=== PATIENT | male | born 1980 | race Caucasian/White ===

== ENCOUNTER 2018-02-19 08:28 | Emergency (ER) | payer OTHER, SELFPAY ==
[2018-02-19 08:30] VITALS: BP 155/91; PULSE 80; RESP 16; TEMP 36.4; O2SAT 99; BMI 30.8
--- NOTE | 2018-02-19 08:54 | ED.DCSUM_ITS ---
- ER Visit Summary Date of Service: 02/19/18 Chief Complaint: Aching right upper quadrant/right costal margin deep dull discomfort History of Present Illness: The patient is a 38 M who presents with right upper quadrant deep dull discomfort for 4 months. He states pain has gotten worse the past 2 days. There is no alleviating, precipitating or exacerbating factors. And specifically there is no difference with movement, food, change in position or breathing. He does report wheezing for approximately 3 years. He does admit to smoking 1 pack per day for 20 years and also chews. He denies any change in the color of his eyes, skin or urine. He denies any change in the consistency, color or caliber of his stool. He does report increased urination and apparently there is a family history diabetes. Denies polydipsia , polyphagia. he denies dysuria, urgency or hematuria. There is no history of trauma. No recent tattoos and no history of hepatitis. He denies fever, chills night sweats. He denies weight gain or weight loss. He denies headache, any ocular, visual or auditory symptoms. He denies paresthesia, anesthesia motor weakness. He does report a cough which is chronic and nonproductive. He attributed this to the fact that he smokes 1 pack per day since age of 18. Please read written note for complete detail. Physical Examination: Vital signs remarkable blood pressure 155 or 91. Patient is well-developed well-nourished in no obvious distress. Head is atraumatic normocephalic. Pupils are equal round reactive. Extraocular muscles are intact. TMs are pearly white with landmarks noted. Nares patent with no drainage. Posterior pharynx without erythema or exudate. Uvula is midline. There is no dysphonia or dysphasia. Trachea is midline. There is no stridor with auscultation of the neck. Heart is regular without murmur, gallop or rub. S1 and S2 are normal. Lungs are clear to auscultation with good movement of air bilaterally. Abdomen is soft and nontender. There is no guarding or peritoneal findings. There is no palpable pulsatile mass. There is no abdominal bruit. Rocha sign is negative. Negative Rovsing sign. There is no evidence of inguinal or umbilical hernia. There is no asymmetry, swelling, discoloration, leg vein distention, palpable cords or tenderness along the distribution of the deep venous system. Neuro exam is nonfocal. Test Results: Is normal. Electrolyte panel is normal. UA is normal. Hepatic is remarkable for an elevated ALT and AST. Upon further questioning patient admits to drinking 6-8 beers a day and 12 pack on weekends. He also admits to drinking shots of whiskey. Emergency Department Course and Treatment: With history of frequency and multiple for members with diabetes will assess electronic panel and UA to evaluate for diabetes. With him having right upper quadrant pain a hepatic profile and CBC were obtained to evaluate this complaint. Since she has no respiratory symptoms and the wheezing has been a chronic issue for 3 years will prescribe albuterol MDI. Treatment Plan: And has been encouraged to decrease his alcohol consumption. He was specifically told not to decrease rapidly. Recommend decreasing one drink a day for a week and then an additional drink a day for a week to prevent withdrawal. He was told his liver enzymes are elevated and based on the ratio this is most likely related to his alcohol consumption. Disposition: Discharged to home in stable condition. He was instructed to keep his appointment with Dr. Kunal Rainey. Impression: Right upper quadrant abdominal pain secondary to alcoholic liver disease This note was generated with [employer] dictation software. It may contain incorrect words, spelling, and punctuation that were not noted in review of the chart prior to signing ED Disposition - Plan for ED Patient: Disposition: Home or Assisted Living Chief Complaint: Abd Pain Instructions: ED Cirrhosis Liver Referrals: Alyssa Givens DO [STAFF PHYSICIAN] - Mihai Clemons MD [NON-STAFF] - Additional Instructions: Keep your appointment for March [address] Kunal Rainey. Recommend decreasing 1 alcoholic beverage a day per week. Do not discontinue abruptly since this will cause withdrawal which is life-threatening.
[2018-02-19 09:04] LABS: Bacteria 0 SEEN /hpf (None Seen); Mucous, Urine 0 SEEN /hpf (<or=2+)
[2018-02-19 09:08] LABS: Absolute Lymphocyte Count 2.49 X10^3/ul (0.83-4.51); Absolute Neutrophil Count 4.6 X10^3/uL (2.0-7.7); Basophil# 0.04 X10^3/uL; Basophil% 0.5 % (0-1); Eosinophils% 7.2 % (0-5); Hematocrit 46.3 % (40-54); Hemoglobin 15.8 g/dl (13.0-16.5); Lymphocyte # 2.49 X10^3/ul (4.0); Lymphocyte % 29.9 % (19-41); Mean Corp Hgb Conc 34.1 g/gl (32-36); Mean Corpuscular Volume 96.7 fL (80-94); Monocyte# 0.53 X10^3/uL; Monocyte% 6.4 % (0-10); Neutrophil # 4.62 X10^3/uL (2.7-7.7); Neutrophil % 55.5 % (47-70); Platelet Count 179 K/mm3 (150-450); RBC Distribution Width CV 13.5 % (11.6-14.6); RBC Distribution Width SD 47.6 fl (35.1-43.9); Red Blood Count 4.79 M/mm3 (4.6-6.2); White Blood Count 8.3 K/mm3 (4.4-11.0)
[2018-02-19 09:09] LABS: POSITIVE COUNT NO; POSITIVE DIFFERENTIAL NO; POSITIVE MORPHOLOGY NO
[2018-02-19 09:11] LABS: Color, Urine Yellow (Yellow); Glucose, Dipstick Normal (Normal); Ketone-Dipstick Negative (Negative); Leukocyte Esterase-Dipstick Negative /ul (Negative); Nitrite-Dipstick Negative (Negative); Occult Blood-Urine Negative /ul (Negative); Protein-Dipstick Negative (Negative); Urine Bilirubin Dipstick Negative (Negative); Urine Clarity Clear (Clear); Urine Urobilinogen Normal (Normal)
[2018-02-19 09:15] LABS: Red Blood Cells-Urine 0-5 SEEN /hpf (0-5); Squamous Epithelial Cells - UA 0-5 SEEN /hpf (0-5); White Blood Cells 0-5 SEEN /hpf (0-5)
[2018-02-19 09:28] LABS: ALB/GLOB Ratio 1.2 RATIO (0.9-2.4); AST(SGOT) 42 U/L (15-37); Alanine Aminotransfer ALT/SGPT 81 U/L (16-61); Alkaline Phosphatase 78 U/L (45-117); Anion Gap 6 (5-15); BUN 16 mg/dL (7-18); Calcium,Total 8.6 mg/dL (8.5-10.1); Chloride 107 mmol/L (98-107); EST Glomerular Filtration Rate 89 mL/min (>60); Est Glom Filt Rate - Afr Amer 107 mL/min (>60); Globulin 3.3 g/dL (2.2-4.2); Glucose 93 mg/dL (74-106); Potassium 4.3 mmol/L (3.5-5.1); Protein, Total 7.3 g/dL (6.4-8.2); Sodium Level 141 mmol/L (136-145)
[2018-02-19 10:50] VITALS: BP 146/98; PULSE 76; RESP 16; O2SAT 97
== END 2018-02-19 10:50 | disposition home or self-care (01) ==
PROVIDERS: Emergency Provider Emergency Medicine
DX: K70.9 Alcoholic liver disease, unspecified (principal); R05 Cough; F17.200 Nicotine dependence, unspecified, uncomplicated; F17.220 Nicotine dependence, chewing tobacco, uncomplicated
CPT/HCPCS: 80053; 81001; 85025; 99282

== ENCOUNTER 2020-03-01 02:55 | Emergency (ER) | payer OTHER, SELFPAY ==
[2020-03-01 02:56] VITALS: BP 165/108; PULSE 85; RESP 16; TEMP 36.9; O2SAT 97; BMI 30.4
--- NOTE | 2020-03-01 03:18 | ED.VISSUMM ---
- ER Visit Summary Date of Service: 03/01/20 Chief Complaint: Sinus infection with yellowish drainage History of Present Illness: The patient is a 40 M history of hypertension. Patient states he gets frequent sinus infections. He said the latest 1 is been going on 5 to 6 weeks. He had yellowish nasal drainage. He said at times he gets pain with it. At times it causes him dental pain. He denies any fever or chills. No significant cough. No shortness of breath. He does not have a primary care physician has not had any treatment for this as of yet. Physical Examination: Middle-aged male no acute distress vital signs are stable and afebrile. H EENT exam nasal congestion. TMs normal bilaterally. Posterior pharynx normal. Well-hydrated. Neck nontender no lymphadenopathy. Lungs clear to auscultation bilaterally. Heart regular rhythm no murmur. Abdomen soft nontender. Moving all 4 extremities. Neurovascular intact. No edema. Neurologically is awake and alert with no focal motor deficits. Test Results: None Emergency Department Course and Treatment: History and exam are consistent with sinusitis. Will be started on amoxicillin 3 times daily first dose given in the ER. Treated for 10 days. Treatment Plan: Amoxicillin for 10 days. Follow-up if not improving. Tylenol Motrin for pain. Disposition: Discharge Impression: Acute sinusitis This note was generated with [employer] dictation software. It may contain incorrect words, spelling, and punctuation that were not noted in review of the chart prior to signing ED Disposition - Plan for ED Patient: Referrals: Care Physician,No Primary [Primary Care Provider] -
--- NOTE | 2020-03-01 03:20 | ED.DEP ---
ED Disposition - Plan for ED Patient: Disposition: Home or Assisted Living Instructions: ED Sinusitis Antibiotic Treatment Prescriptions: Amoxicillin 500 mg PO TID #30 tab Prescription Printed Referrals: Ronnie Quintana MD [NON-STAFF] - 1 Week if not improving Additional Instructions: Amoxicillin 1 pill 3 times a day for 10 days. Tylenol and/or Motrin for pain. Follow-up if not improving. Stop smoking
[2020-03-01 03:44] VITALS: BP 144/95; PULSE 78; RESP 18; O2SAT 95
[2020-03-01] MEDS: AMOXICILLIN 500 MG CAPSULE PO (03:44)
== END 2020-03-01 03:45 | disposition home or self-care (01) ==
LOC: ED 03:23
PROVIDERS: Emergency Provider Emergency Medicine
DX: J01.90 Acute sinusitis, unspecified (principal); I10 Essential (primary) hypertension; Z72.0 Tobacco use
CPT/HCPCS: 99283

== ENCOUNTER 2022-01-29 15:53 | Emergency (ER) | payer OTHER, SELFPAY ==
[2022-01-29 15:55] VITALS: BP 204/120; PULSE 90; RESP 16; TEMP 36.5; O2SAT 99; BMI 29.7
--- NOTE | 2022-01-29 16:31 | ED.VIS.DENTA ---
HPI History of Present Illness Chief Complaint: Ear Problem Informant: patient Narrative Narrative: Patient presents with left upper jaw dental pain about 3 days. He states is kind of radiating toward the left ear but his hearing is normal. No chest pain or trouble breathing. He has had dental infections that acted like this. He has an appointment with the dentist tomorrow. Nothing really makes his better or worse. PFSH PFSH Medical History no medical history Home Medications naproxen 500 mg PO BID #14 tab 01/29/22 [Rx Last Taken Unknown] penicillin V potassium 500 mg PO 4X/DAY #40 tab 01/29/22 [Rx Last Taken Unknown] Allergy/AdvReac Type Severity Reaction Status Date / Time No Known Allergies Allergy Verified 01/29/22 15:55 Surgical History no surgical history Social History Smoking Status: Current every day smoker tobacco type: cigarettes ROS ROS ED Constitutional Constitutional ED: Denies chills or fever(s) Eyes Eyes: Denies blurry vision or change in vision ENT ENT ED: Reports other Details: See history of present illness ; Denies rhinorrhea Cardiovascular Cardiovascular: Denies chest pain Respiratory/Chest Respiratory/Chest: Denies cough or dyspnea Gastrointestinal Gastrointestinal: Denies nausea or vomiting Integumentary Denies rash Neurologic Neurologic: Denies headache(s) Allergic/Immunologic Allergic/Immunologic ED: Denies mouth swelling or tongue swelling EXAM Physical Exam Const Vital Signs: 01/29/22 15:55 01/29/22 16:41 Temperature 97.7 F L Temperature Source Temporal Pulse Rate 90 Respiratory Rate 16 Blood Pressure 204/120 H 176/117 H Blood Pressure Mean 148 136 Pulse Ox 99 Oxygen Delivery Method Room Air Positive well nourished and well developed Constitutional Narrative: Patient sitting quietly in the chair. No acute distress. General Appearance ED: well developed and NAD HEENT HEENT Narrative: No facial swelling or erythema. Tympanic membranes are actually clear on both sides. No tenderness at the tragus. No TMJ tenderness. His posterior upper molars on the left do have erythema of the gums around them. There is some mild tenderness. No notable fracture. No lower jaw symptoms. Voice is normal. No sign of Ludewig's. Negative for trauma Eyes PERRL and EOMs intact bilaterally Neck supple Chest Wall inspection of chest normal Resp normal respiratory effort and clear to auscultation bilaterally Cardio regular rate and regular rhythm Extremity normal to inspection General Extremety ED: Negative for edema General Extremity: Negative for edema Neuro Sensorium / Orientation: alert Skin no rashes or lesions noted MDM MDM MDM Narrative Medical decision making narrative: Patient will be given penicillin Naprosyn for his tooth. Repeat blood pressure did come down. But it still abnormal. This might be contributed by pain. He has no symptoms of this. His exam is normal. However it is very important he follow-up. There is a good chance this may need treatment. He will be referred to a primary physician. Discharge Plan Triage Chief Complaint: Ear Problem Other Complaint: Dental ED Provider: Delon Neff Dx/Rx/DC Orders Clinical Impression: Pain, dental, Elevated blood pressure reading Instructions: Dental Abscess, ED Hypertension, To Be Confirmed Prescriptions: New penicillin V potassium 250 MG tablet 500 mg PO 4X/DAY Qty: 40 RF: 0 naproxen 500 MG tablet 500 mg PO BID Qty: 14 RF: 0 Primary Care Provider: Care Physician,No Primary Referrals: Emiliano Tarango MD [STAFF PHYSICIAN] - As soon as possible (Please follow-up for recheck of blood pressure. Your blood pressure was elevated today. This needs to be followed. This may need treatment.) Care Physician,No Primary [Primary Care Provider] - Disposition Disposition: Home, Self Care
[2022-01-29 16:41] VITALS: BP 176/117
[2022-01-29] MEDS: Naproxen 500 MG Tablet PO (16:53)
[2022-01-29] MEDS: Penicillin Vk 250 MG Tablet 500 MG PO (16:53)
== END 2022-01-29 17:06 | disposition home or self-care (01) ==
PROVIDERS: Emergency Provider Emergency Medicine; Visit Provider Emergency Medicine
DX: K08.89 Other specified disorders of teeth and supporting structures (principal); R03.0 Elevated blood-pressure reading, without diagnosis of hypertension; R68.84 Jaw pain; F17.210 Nicotine dependence, cigarettes, uncomplicated
CPT/HCPCS: 99283

== ENCOUNTER 2022-02-13 07:20 | Outpatient (CLI) | payer OTHER, SELFPAY ==
[2022-02-13 10:39] LABS: Anion Gap 6 (5-15); BUN 13 mg/dL (7-18); BUN/Creat Ratio 13.9 RATIO (10-20); Calcium,Total 9.2 mg/dL (8.5-10.1); Chloride 104 mmol/L (98-107); Cholesterol 232 mg/dL (200); Creatinine, Serum 0.94 mg/dL (0.70-1.30); EST Glomerular Filtration Rate 94 mL/min (>60); Est Glom Filt Rate - Afr Amer 113 mL/min (>60); Glucose 87 mg/dL (74-106); High Density Lipoprotein 52 mg/dL; Potassium 3.9 mmol/L (3.5-5.1); Sodium Level 138 mmol/L (136-145); Triglycerides 146 mg/dL; Very Low Density Lipoprotein 29 mg/dL (5-40)
== END 2022-02-13 23:59 | disposition home or self-care (01) ==
LOC: MTLAB 07:21
PROVIDERS: PCP Family Medicine; Referring Provider Family Medicine; Visit Provider Family Medicine
DX: I10 Essential (primary) hypertension (principal)
CPT/HCPCS: 36415; 80048; 80061

== ENCOUNTER → 2023-03-09 | Outpatient (CLI) | payer OTHER, SELFPAY ==
[2023-03-09 09:57] LABS: Absolute Lymphocyte Count 1.97 X10^3/uL (0.83-4.51); Absolute Neutrophil Count 3.2 X10^3/uL (2.0-7.7); Basophil# 0.06 X10^3/uL; Eosinophil# 0.54 X10^3/uL; Eosinophils% 8.7 % (0-5); Hematocrit 45.7 % (40-54); Lymphocyte # 1.97 X10^3/ul (0.83-4.51); Lymphocyte % 31.6 % (19-41); Mean Corpuscular Hgb 33.6 pg (27.0-32.0); Mean Platelet Vol. 10.3 fl (6.2-12.0); Monocyte# 0.38 X10^3/uL; Monocyte% 6.1 % (0-10); NRBC Flagged by Analyzer 0 % (0-5); Neutrophil # 3.23 X10^3/uL (2.7-7.7); Neutrophil % 51.8 % (47-70); Platelet Count 186 K/mm3 (150-450); RBC Distribution Width CV 12.8 % (11.6-14.6); RBC Distribution Width SD 45.6 fl (35.1-43.9); Red Blood Count 4.76 M/mm3 (4.6-6.2); White Blood Count 6.2 K/mm3 (4.4-11.0)
[2023-03-09 10:29] LABS: ALB/GLOB Ratio 1.2 RATIO (0.9-2.4); AST(SGOT) 28 U/L (15-37); Alanine Aminotransfer ALT/SGPT 63 U/L (16-61); Albumin, Serum 3.9 g/dL (3.2-5.0); Alkaline Phosphatase 68 U/L (45-117); Anion Gap 5 (5-15); BUN 15 mg/dL (7-18); BUN/Creat Ratio 17.8 RATIO (10-20); Chloride 109 mmol/L (98-107); Cholesterol 223 mg/dL (200); Creatinine, Serum 0.84 mg/dL (0.70-1.30); EST Glomerular Filtration Rate 105 mL/min (>60); Est Glom Filt Rate - Afr Amer 127 mL/min (>60); Globulin 3.3 g/dL (2.2-4.2); Glucose 89 mg/dL (74-106); High Density Lipoprotein 55 mg/dL; Potassium 3.9 mmol/L (3.5-5.1); Protein, Total 7.2 g/dL (6.4-8.2); Sodium Level 138 mmol/L (136-145); Triglycerides 247 mg/dL; Very Low Density Lipoprotein 49 mg/dL (5-40)
== END | disposition home or self-care (01) ==
LOC: MFPLAB 08:14
PROVIDERS: PCP Family Medicine; Visit Provider Family Medicine
DX: I10 Essential (primary) hypertension (principal); F10.10 Alcohol abuse, uncomplicated
CPT/HCPCS: 36415; 80053; 80061; 85025

== ENCOUNTER → 2023-04-20 | Outpatient (CLI) | payer OTHER, SELFPAY ==
[2023-04-20 11:18] LABS: Absolute Lymphocyte Count 2.26 X10^3/uL (0.83-4.51); Absolute Neutrophil Count 3.7 X10^3/uL (2.0-7.7); Basophil# 0.05 X10^3/uL; Basophil% 0.7 % (0-1); Eosinophil# 0.43 X10^3/uL; Eosinophils% 6.1 % (0-5); Hematocrit 46.6 % (40-54); Hemoglobin 16.3 g/dL (13.0-16.5); Lymphocyte # 2.26 X10^3/ul (0.83-4.51); Lymphocyte % 32.1 % (19-41); Mean Corpuscular Hgb 33.7 pg (27.0-32.0); Mean Corpuscular Volume 96.5 fL (80-94); Mean Platelet Vol. 10.2 fl (6.2-12.0); Monocyte# 0.57 X10^3/uL; Monocyte% 8.1 % (0-10); NRBC Flagged by Analyzer 0 % (0-5); Neutrophil # 3.69 X10^3/uL (2.7-7.7); Neutrophil % 52.6 % (47-70); Platelet Count 174 K/mm3 (150-450); RBC Distribution Width CV 13.5 % (11.6-14.6); RBC Distribution Width SD 48.4 fl (35.1-43.9); Red Blood Count 4.83 M/mm3 (4.6-6.2)
[2023-04-20 11:38] LABS: Vitamin D,25 Hydroxy 43.2 ng/mL
== END | disposition home or self-care (01) ==
LOC: MFPLAB 09:44
PROVIDERS: PCP Family Medicine; Visit Provider Family Medicine
DX: R53.83 Other fatigue (principal)
CPT/HCPCS: 36415; 82306; 84403; 85025

== ENCOUNTER → 2025-04-22 | Outpatient (CLI) | payer BC, SELFPAY ==
[2025-04-22 12:49] LABS: Absolute Lymphocyte Count 2.35 X10^3/uL (0.83-4.51); Absolute Neutrophil Count 4.8 X10^3/uL (2.0-7.7); Basophil# 0.08 X10^3/uL; Eosinophil# 0.42 X10^3/uL; Eosinophils% 5.1 % (0-5); Hematocrit 46.5 % (40-54); Hemoglobin 16.7 g/dL (13.0-16.5); Lymphocyte # 2.35 X10^3/ul (0.83-4.51); Lymphocyte % 28.3 % (19-41); Mean Corp Hgb Conc 35.9 g/dL (32-36); Mean Corpuscular Hgb 32.9 pg (27.0-32.0); Mean Corpuscular Volume 91.5 fL (80-94); Mean Platelet Vol. 10.1 fl (6.2-12.0); Monocyte# 0.56 X10^3/uL; Monocyte% 6.8 % (0-10); NRBC Flagged by Analyzer 0 % (0-5); Neutrophil # 4.84 X10^3/uL (2.7-7.7); Neutrophil % 58.3 % (47-70); Platelet Count 206 K/mm3 (150-450); RBC Distribution Width SD 43.6 fl (35.1-43.9); Red Blood Count 5.08 M/mm3 (4.6-6.2); White Blood Count 8.3 K/mm3 (4.4-11.0)
[2025-04-22 13:22] LABS: ALB/GLOB Ratio 1.8 RATIO (0.9-2.4); AST(SGOT) 27 U/L (<=37); Alanine Aminotransfer ALT/SGPT 39 U/L (<=46); Albumin, Serum 4.8 g/dL (3.5-5.0); Alkaline Phosphatase 66 U/L (40-129); Anion Gap 13 (5-15); BUN 15 mg/dL (4-19); Calcium,Total 9.6 mg/dL (7.6-11.0); Chloride 103 mmol/L (98-108); Cholesterol 235 mg/dL (<=200); EST Glomerular Filtration Rate 94 (>60); Globulin 2.7 g/dL (2.2-4.2); Glucose 104 mg/dL (70-99); High Density Lipoprotein 58 mg/dL; Low Density Lipoprotein Calc. 161 mg/dL; Potassium 4.2 mmol/L (3.3-5.1); Protein, Total 7.5 g/dL (5.9-8.4); Sodium Level 139 mmol/L (133-145); Total Bilirubin 0.95 mg/dL (0.00-1.30); Triglycerides 79 mg/dL; Very Low Density Lipoprotein 16 mg/dL (5-40); cholesterol:hdl ratio screen 4.07
[2025-04-24 04:07] LABS: GGTP 83 IU/L (0-65)
== END | disposition home or self-care (01) ==
PROVIDERS: PCP Family Medicine; Referring Provider Family Medicine; Visit Provider Family Medicine
DX: Z00.00 Encounter for general adult medical examination without abnormal findings (principal); F10.10 Alcohol abuse, uncomplicated
CPT/HCPCS: 36415; 80053; 80061; 82977; 85025